=== PATIENT | male | born 1960 | race Caucasian/White ===

== ENCOUNTER 2017-09-06 19:59 | Inpatient (IN) ==
--- OUTSIDE RECORDS SUMMARY | 2017-09-06 20:10 | External Medical Summary | Referral Summary ---
:1960 Author Organization [facility], [address] [place] [address] Care Team Providers Name Role Phone Martinez Thompson Primary Care Physician Encounter VC Date(s): 07/27/15 - 07/27/15 [facility] [address] [place] [phone] [place] Discharge Diagnosis: HTN (hypertension) Discharge Diagnosis: CAD (coronary artery disease) Discharge Disposition: 01-Home or Self Care Attending Physician: Martinez Thompson DO Admitting Physician: Martinez Thompson DO Vital Signs Most recent to oldest [Reference Range]: 1 Temperature Tympanic [36.6-38.1 degC] 36.2 degC *LOW* (07/27/15 3:40 PM) Peripheral Pulse Rate [60-100 bpm] 80 bpm (07/27/15 3:40 PM) Blood Pressure [90-140/60-90 mmHg] 147/95 mmHg *HI* (07/27/15 3:40 PM) Problem List Condition Effective Dates Status Health Status Informant Angina(Confirmed) Active Bronchitis(Confirmed) Active Chicken pox(Confirmed) Active Sinus infection(Confirmed) Active Tension headache(Confirmed) Active Ulcer(Confirmed) Active Ulcerative colitis(Confirmed) Active Allergies, Adverse Reactions, Alerts Substance Reaction Severity Status ciprofloxacin joint pains and general malais Active doxycycline Active erythromycin Active penicillin Active Medications aspirin 325 mg oral tablet 325 mg 1 tabs, Oral, Daily, # 30 tabs, 0 Refill(s) Start Date: 07/27/15 Status: Orderedatorvastatin 40 mg oral tablet 40 mg 1 tabs, Oral, Daily, # 30 tabs, 0 Refill(s) Start Date: 07/27/15 Status: OrderedCoreg 12.5 mg oral tablet 12.5 mg 1 tabs, Oral, BID, # 60 tabs, 0 Refill(s), Pharmacy: [facility] [id number], 1 tabs OralBID Start Date: 07/27/15 Status: OrderedDulera 100 mcg-5 mcg/inh inhalation aerosol See Instructions, INHALE 1 PUFF BY INHALATION ROUTE EVERY DAY IN THE MORNING AND EVENING, # 30 unknown unit, 3 Refill(s), eRx: [facility] [id number], INHALE 1 PUFF BY INHALATION ROUTE EVERY DAY INTHE MORNING AND EVENING Start Date: 01/15/15 Status: Orderedibuprofen 200 mg oral tablet tabs, Oral, q4hr, 0 Refill(s) Start Date: 12/25/13 Status: Orderedprasugrel 5 mg oral tablet 5 mg 1 tabs, Oral, Daily, # 30 tabs, 0 Refill(s) Start Date: 07/27/15 Status: OrderedTylenol Caplet 325 mg oral tablet tabs, Oral, q4hr, 0 Refill(s) Start Date: 12/25/13 Status: Ordered Results No data available for this section Immunizations No data available for this section Procedures Procedure Date Related Diagnosis Body Site Colonoscopy1 Tonsillectomy Vasectomy or 2008 Social History Social History Type Response Smoking Status Never smoker Assessment and Plan Extracted from: Title: Office Visit Note Author: Martinez Thompson DO Date: 07/27/15 Assessment/Plan CAD (coronary artery disease) Pathophysiology of this presentation, and differential diagnosis, discussed in detail with the patient. All questions were answered. 1. Healthy lifestyle modifications including diet and daily exercise recommended. 2. Labs ordered and are pending. Ordered: CBC w/ Differential Comprehensive Metabolic Panel Lipid Panel Office Visit Level 4 Est 63614 HTN (hypertension) Pathophysiology of this presentation, and differential diagnosis, discussed in detail with the patient. All questions were answered. 1. Low salt diet recommended. 2. Healthy lifestyle changes recommended. 3. Follow-up in one month for reevaluation. 4. Was started on Coreg 12.5 mg twice a day. Ordered: Office Visit Level 4 Est 17661 Orders: carvedilol, 12.5 mg 1 tabs, Oral, BID, # 60 tabs, 0 Refill(s), Pharmacy: [facility] [id number], 1 tabs Oral BID
--- OUTSIDE RECORDS SUMMARY | 2017-09-06 20:10 | External Medical Summary | Referral Summary ---
:1960 Author Organization [facility], [address] [place] [address] Care Team Providers Name Role Phone Martinez Thompson Primary Care Physician Encounter VC Date(s): 12/10/15 - 12/10/15 [facility] [address] [place] [phone] [place] Discharge Diagnosis: HTN (hypertension) Discharge Diagnosis: CAD (coronary artery disease) Discharge Diagnosis: Radial mononeuropathy Discharge Disposition: 01-Home or Self Care Attending Physician: Martinez Thompson DO Admitting Physician: Martinez Thompson DO Vital Signs Most recent to oldest [Reference Range]: 1 Temperature Tympanic [36.6-38.1 degC] 36.3 degC *LOW* (12/10/15 8:27 AM) Apical Heart Rate [60-100 bpm] 61 bpm (12/10/15 8:27 AM) Blood Pressure [90-140/60-90 mmHg] 128/82 mmHg (12/10/15 8:27 AM) SpO2 97 % (12/10/15 8:27 AM) Problem List Condition Effective Dates Status Health Status Informant Angina(Confirmed) Active Bronchitis(Confirmed) Active Chicken pox(Confirmed) Active CAD (coronary artery Active disease)(Confirmed) HTN (hypertension)(Confirmed) Active Sinus infection(Confirmed) Active Tension headache(Confirmed) Active [...] tabs, 0 Refill(s) Start Date: 07/27/15 Status: Orderedcarvedilol 12.5 mg oral tablet See Instructions, TAKE 1 TABLET BY MOUTH TWICE DAILY, # 60 tabs, 5 Refill(s), eRx: [facility] [id number], TAKE 1 TABLET BY MOUTH TWICE DAILY Start Date: 11/25/15 Status: OrderedDulera 100 mcg-5 mcg/inh inhalation aerosol See Instructions, INHALE 1 PUFF BY INHALATION ROUTE EVERY DAY IN THE MORNING AND EVENING, # 30 unknown unit, 3 Refill(s), eRx: [facility] [id number], INHALE 1 PUFF BY INHALATION ROUTE EVERY [...] q4hr, 0 Refill(s) Start Date: 12/25/13 Status: OrderedVentolin HFA 90 mcg/inh inhalation aerosol 2 puffs, Inhalation, q4hr, as needed for wheezing, # 1 inch, 6 Refill(s), Pharmacy: [facility] [id number], 2 puffs Inhalation q4hr,PRN:as needed for wheezing Start Date: 12/10/15 Status: Ordered Results No data available for this section Immunizations No data available for this section Procedures Procedure Date Related Diagnosis Body Site Colonoscopy1 Tonsillectomy Vasectomy or 2008 Social History Social History Type Response Smoking Status Never smoker Assessment and Plan Extracted from: Title: Office Visit Note Author: Martinez Thompson DO Date: 12/10/15 Assessment/Plan 1.HTN (hypertension), Essential (primary) hypertension 1. Blood pressures well controlled. 2. Continue with current blood pressure regimenwith carvedilol. 3. Continue with low-salt diet. 4. Continue maintaining healthy diet and weight. 5. We will see him in 6 months. Ordered: Office Visit Level 4 Est 36770 2.CAD (coronary artery disease), Atherosclerotic heart disease of [place] coronary artery without angina pectoris 1. Continue with atorvastatin as previous. 2. Continue with cardiology recommendations as per Dr. Jones 3. Heart healthy diet recommended. Ordered: Office Visit Level 4 Est 35549 3.Radial mononeuropathy, Injury of radial nerve at wrist and hand level of right arm, initial encounter 1. We discussed the numbness in the right hand between the second and third digit, this appears to be mononeuropathy to one of the distal branches of the radial nerve. 2. If this is persistent, worsens or involves a wider distribution, then we may consider EMG study and referral to hand surgeon. Ordered: Office Visit Level 4 Est 16925 Mild intermittent asthma 1. Continue with Dulera one puff daily. Increase to one puff twice a day if his symptoms worsens. 2. Rescue inhaler 2 puffs every 4 hours for exacerbations. Ordered: Office Visit Level 4 Est 84526 Orders: albuterol, 2 puffs, Inhalation, q4hr, as needed for wheezing, # 1 inch, 6 Refill(s), Pharmacy: [facility] [id number], 2 puffs Inhalation q4hr ,PRN:as needed for wheezing
--- OUTSIDE RECORDS SUMMARY | 2017-09-06 20:10 | External Medical Summary | Referral Summary ---
:1960 Author Organization [facility], [address] [place] [address] Care Team Providers Name Role Phone Martinez Thompson Primary Care Physician Encounter VC Date(s): 06/13/16 - 06/13/16 [facility] [address] [place] [phone]- Discharge Diagnosis: Moderate persistent chronic asthma without complication Discharge Diagnosis: HTN (hypertension) Discharge Disposition: 01-Home or Self Care Attending Physician: Martinez Thompson DO Admitting Physician: Martinez Thompson DO Vital Signs Most recent to oldest [Reference Range]: 1 Temperature Tympanic [36.6-38.1 degC] 35.8 degC *LOW* (06/13/16 8:38 AM) Peripheral Pulse Rate [60-100 bpm] 85 bpm (06/13/16 8:38 AM) Blood Pressure [90-140/60-90 mmHg] 157/102 mmHg *HI* (06/13/16 8:38 AM) Problem List Condition Effective Dates Status [...] BY MOUTH TWICE DAILY, # 60 tabs, 2 Refill(s), eRx: [facility] [id number], TAKE 1 TABLET BY MOUTH TWICE DAILY Start Date: 05/18/16 Status: OrderedDulera 100 mcg-5 mcg/inh inhalation aerosol 2 puffs, Inhalation, BID, # 13 g, 6 Refill(s), Pharmacy: [facility] [id number] Start Date: 06/13/16 Status: Orderedibuprofen 200 mg oral tablet tabs, Oral, q4hr, 0 Refill(s) Start Date: 12/25/13 Status: Orderednitroglycerin 0 Refill(s) Start Date: 06/13/16 Status: Orderedprasugrel 10 mg oral tablet 10 mg 1 tabs, Oral, Daily, # 30 tabs, 0 Refill(s), other reason (Rx) Start Date: 06/13/16 Status: OrderedpredniSONE 20 mg oral tablet 20 mg 1 tabs, Oral, Daily, X 5 days, # 5 tabs, 0 Refill(s), Pharmacy: [facility] [id number], 1 tabs Oral Daily,x5 days Start Date: 06/13/16 Stop Date: 06/18/16 Status: OrderedTylenol Caplet 325 mg oral tablet tabs, Oral, q4hr, 0 Refill(s) Start Date: 12/25/13 Status: OrderedVentolin HFA 90 mcg/inh inhalation aerosol 2 puffs, Inhalation, q4hr, as needed for wheezing, # 1 inch, 6 Refill(s), Pharmacy: [facility] [id number], 2 puffs Inhalation q4hr,PRN:as needed for wheezing Start Date: 12/10/15 Status: Ordered Results No data available for this section Immunizations No data available for this section Procedures Procedure Date Related Diagnosis Body Site Colonoscopy1 Tonsillectomy Vasectomy or 2008 Social History Social History Type Response Smoking Status Never smoker Assessment and Plan Extracted from: Title: Office Visit Note Author: Martinez Thompson DO Date: 06/13/16 Assessment/Plan 1.HTN (hypertension) 1. Blood pressure was rechecked and it was 142/94. 2. Low salt diet recommended. 3. Continue meds as previous. 4. Avoid NSAID's 5. Followup in a month for reevaluation. Moderate persistent chronic asthma without complication 1. Agree with increasing Dulera to bid 2. Burst course steroid for 5 days. 3. Continue with rescue inhaler as previous. 4. followup if worsening. 5. Z-belinda was made available if he has having discolored productive cough. Ordered: predniSONE, 20 mg 1 tabs, Oral, Daily, X 5 days, # 5 tabs, 0 Refill(s), [id number], 1 tabs Oral Daily,x5 days Office Visit Level 4 Est 83315 1. Patient is up to date on flu shot for this season. 2. Rib cage pain appears to be muscular in nature.
--- OUTSIDE RECORDS SUMMARY | 2017-09-06 20:10 | External Medical Summary | Referral Summary ---
:1960 Author Organization [facility] [address] [place] [address] [place] [address] Care Team Providers Name Role Phone Martinez Thompson Primary Care Physician Encounter VC Date(s): 12/24/15 - 12/24/15 [facility] [address] [place] [phone] [place] Discharge Disposition: 01-Home or Self Care Attending Physician: Martinez Thompson DO Admitting Physician: Martinez Thompson DO Vital Signs Most recent to oldest [Reference Range]: 1 Temperature Tympanic [36.6-38.1 degC] 37.0 degC (12/24/15 10:09 AM) Apical Heart Rate [60-100 bpm] 74 bpm (12/24/15 10:09 AM) Blood Pressure [90-140/60-90 mmHg] 118/82 mmHg (12/24/15 10:09 AM) SpO2 96 % (12/24/15 10:09 AM) Problem List Condition Effective Dates Status [...] DAILY, # 60 tabs, 5 Refill(s), eRx: [facility] [id number], TAKE 1 TABLET BY MOUTH TWICE DAILY Start Date: 11/25/15 Status: OrderedDulera 100 mcg-5 mcg/inh inhalation aerosol See Instructions, INHALE 1 PUFF BY INHALATION ROUTE EVERY DAY IN THE MORNING AND EVENING, # 30 unknown unit, 3 Refill(s), eRx: [facility] , INHALE 1 PUFF BY INHALATION ROUTE EVERY DAY INTHE MORNING AND EVENING Start Date: 01/15/15 Status: Orderedibuprofen 200 mg oral tablet tabs, Oral, q4hr, 0 Refill(s) Start Date: 12/25/13 Status: Orderedprasugrel 5 mg oral tablet 5 mg 1 tabs, Oral, Daily, # 30 tabs, 0 Refill(s) Start Date: 07/27/15 Status: OrderedpredniSONE 20 mg oral tablet 20 mg 1 tabs, Oral, Daily, X 5 days, # 5 tabs, 0 Refill(s), Pharmacy: [facility] [id number], 1 tabs Oral Daily,x5 days Start Date: 12/24/15 Stop Date: 12/29/15 Status: OrderedTylenol Caplet 325 mg oral tablet tabs, Oral, q4hr, 0 Refill(s) Start Date: 12/25/13 Status: OrderedVentolin HFA 90 mcg/inh inhalation aerosol 2 puffs, Inhalation, q4hr, as needed for wheezing, # 1 inch, 6 Refill(s), Pharmacy: [facility] [id number], 2 puffs Inhalation q4hr,PRN:as needed for wheezing Start Date: 12/10/15 Status: OrderedZithromax Z-Justino 250 mg oral tablet 1 packets, Oral, Daily, as directed on package labeling, X 5 days, # 6 tabs, 0 Refill(s), Pharmacy: [facility] [id number], 1 packets Oral Daily,x5 days, Instr:as directed on package labeling Start Date: 12/24/15 Stop Date: 12/29/15 Status: Ordered Results No data available for this section Immunizations No data available for this section Procedures Procedure Date Related Diagnosis Body Site Colonoscopy1 Tonsillectomy Vasectomy or 2008 Social History Social History Type Response Smoking Status Never smoker Assessment and Plan Extracted from: Title: Office Visit Note Author: Martinez Thompson DO Date: 12/24/15 Assessment/Plan Acute bacterial bronchitis 1. Z-Justino take as directed for 5 days 2. Prednisone 20 mg daily for 5 days 3. Follow-up for worsening presentation Ordered: azithromycin, 1 packets, Oral, Daily, as directed on package labeling, X 5 days, # 6 tabs, 0 Refill(s), Pharmacy: [facility] [id number], 1 packets Oral Daily,x5 days,Instr:as directed on package labeling predniSONE, 20 mg 1 tabs, Oral, Daily, X 5 days, # 5 tabs, 0 Refill(s), Pharmacy: [facility] [id number], 1 tabs Oral Daily,x5 days
--- OUTSIDE RECORDS SUMMARY | 2017-09-06 20:10 | External Medical Summary | Continuity of Care Document ---
:1960 Author Organization [facility] Allergies Active Description Code Type Severity Reaction Onset Reported/ Identified Relationship Clinical to Patient Status Yes ciprofloxaci NKMA N/A joint 11/20/2013 n pains and general malais Yes doxycycline NKMA N/A N/A 11/20/2013 Yes erythromycin NKMA N/A N/A 11/20/2013 Yes penicillin NKMA N/A N/A 11/20/2013 Yes ciprofloxaci cipro Drug Unknown FLU LIKE 07/10/2015 n floxa Aller SYMPTOMS natalia gy Yes erythromycin eryth Drug Unknown FLU LIKE 07/10/2015 base romyc Aller SYMPTOMS in gy base Yes iodine iodin Drug Unknown FLU LIKE 07/10/2015 e Aller SYMPTOMS gy Yes No Known No Drug Unknown N/A 07/10/2015 Allergies Known Aller Aller gy gies Yes Penicillins Penic Drug Unknown FLU LIKE 07/10/2015 illin Aller SYMPTOMS s gy Medications There is no data. Problems Date Dx Attending Type Code Diagnosis Diagnosed By Coded 12/10/2015 Martinez Thompson Final I10 Essential (primary) hypertension 12/10/2015 Martinez Thompson Final I25.10 Atherosclerotic heart disease of [place] coronary artery without angina pectoris 12/10/2015 Martinez Thompson Final G56.30 Lesion of radial nerve, unspecified upper limb 12/10/2015 Martinez Thompson Final S64.21XA Injury of radial nerve at wrist and hand level of right arm, initial encounter 03/08/2016 Martinez Thompson Final J30.2 Other seasonal allergic rhinitis 03/08/2016 Martinez Thompson Final R23.8 Other skin changes 04/21/2016 Martinez Thompson Final J30.2 Other seasonal allergic rhinitis 04/21/2016 Martinez Thompson Final J45.40 Moderate persistent asthma, uncomplicated 06/13/2016 Martinez Thompson Final J45.40 Moderate persistent asthma, uncomplicated 06/13/2016 Martinez Thompson Final I10 Essential (primary) hypertension 07/14/2016 Martinez Thompson Final I10 Essential (primary) hypertension 07/14/2016 Martinez Thompson Final M54.2 Cervicalgia 04/05/2017 Crescencio, Final J30.1 Allergic rhinitis due [place] to pollen Procedures Code Description [place] [address] Office or 12/10/2015 other outpatient visit for the evaluation and management of an established patient, which requires at least 2 of these 3 whalen components: An expanded problem focused history; An expanded prob 26064 Office or 12/10/2015 other outpatient visit for the evaluation and management of an established patient, which requires at least 2 of these 3 whalen components: A detailed history; A detailed examination; Medical d 27219 Office or 12/24/2015 other outpatient visit for the evaluation and management of an established patient, which requires at least 2 of these 3 whalen components: An expanded problem focused history; An expanded prob 23040 Office or 03/08/2016 other outpatient visit for the evaluation and management of an established patient, which requires at least 2 of these 3 whalen components: A detailed history; A detailed examination; Medical d 26570 Office or 06/13/2016 other outpatient visit for the evaluation and management of an established patient, which requires at least 2 of these 3 whalen components: A detailed history; A detailed examination; Medical d 06327 Office or 07/14/2016 other outpatient visit for the evaluation and management of an established patient, which requires at least 2 of these 3 whalen components: An expanded problem focused history; An expanded prob 58377 Office or 04/05/2017 other outpatient visit for the evaluation and management of an established patient, which requires at least 2 of these 3 whalen components: An expanded problem focused history; An expanded prob Results Test Result Range TROPONIN I BEDSIDE - 07/10/15 12:22 METHOD Bedside TROPONIN I < 0.04 ng/mL < 0.11 CHEM/HEM PROFILE-BEDSIDE - 07/10/15 12:46 POTASSIUM 4.3 mmol/L 3.5-5.3 METHOD Bedside ANION GAP 19 mmol/L 10-20 METHOD Bedside GLUCOSE 123 mg/dL 70-99 BLOOD UREA NITROGEN 24 mg/dL 7-20 CREATININE 0.8 mg/dL 0.7-1.3 HEMOGLOBIN 16.0 gm/dL 14.0-18.0 HEMATOCRIT 47.0 % 40.0-54.0 SODIUM 141 mmol/L 135-148 CHLORIDE 105 mmol/L 98-110 CARBON DIOXIDE 22 mmol/L 21-32 CALCIUM IONIZED 5.1 mg/dL 4.5-5.3 CBC W/DIFF - 07/10/15 12:51 COMMENT REVIEWED GRANULOCYTE # 12.0 k/cumm 2.0-9.0 GRANULOCYTE % 96 % 50-75 LYMPHOCYTE # 0.4 k/cumm 1.0-4.0 LYMPHOCYTE % 3 % 20-30 MEAN CELL HGB 29.2 pg 27.0-33.0 MEAN CELL HGB CONCENTRATION 33.3 g/dL 32.0-37.0 MEAN CELL VOLUME 87.7 fl 80.0-100.0 MONOCYTE # 0.2 k/cumm 0.1-1.0 MONOCYTE % 1 % 4-6 RED BLOOD CELL 5.28 m/cumm 4.00-6.00 RED CELL DISTRIBUTION WIDTH 13.7 % 11.0-15.6 WHITE BLOOD CELL 12.5 k/cumm 5.0-10.0 HEMOGLOBIN 15.4 gm/dL 14.0-18.0 HEMATOCRIT 46.3 % 40.0-54.0 PLATELET COUNT 253 k/cumm 150-400 PROTHROMBIN TIME WITH INR - 07/10/15 14:18 INTERNATIONAL NORMAL RATIO 1.1 0.9-1.1 PROTHROMBIN TIME 11.8 sec 9.3-12.2 MAGNESIUM - 07/10/15 14:18 MAGNESIUM 1.8 mg/dL 1.8-2.4 CBC - 07/11/15 03:15 MEAN CELL HGB 30.3 pg 27.0-33.0 MEAN CELL HGB CONCENTRATION 34.3 g/dL 32.0-37.0 MEAN CELL VOLUME 88.4 fl 80.0-100.0 RED BLOOD CELL 4.55 m/cumm 4.00-6.00 RED CELL DISTRIBUTION WIDTH 13.8 % 11.0-15.6 WHITE BLOOD CELL 13.0 k/cumm 5.0-10.0 HEMOGLOBIN 13.8 gm/dL 14.0-18.0 HEMATOCRIT 40.2 % 40.0-54.0 PLATELET COUNT 210 k/cumm 150-400 METABOLIC PANEL, BASIC - 07/11/15 03:15 POTASSIUM 3.8 mmol/L 3.5-5.3 EST GFR (MDRD) > 60 mL/min > 59 ANION GAP 6 mmol/L 5-15 EST CrCl (CG) > 60 mL/min > 59 GLUCOSE 121 mg/dL 70-99 CALCIUM 8.3 mg/dL 8.5-10.1 BLOOD UREA NITROGEN 27 mg/dL 7-20 CREATININE 1.0 mg/dL 0.7-1.3 SODIUM 140 mmol/L 135-148 CHLORIDE 109 mmol/L 98-110 CARBON DIOXIDE 25 mmol/L 21-32 Encounters ACCT No. Visit Discharge Status Pt. Type Provider Facility Loc./Unit Complaint Date/Time [id number] 09/30/2013 09/30/2013 [facility] Out[facility] 08:16:00 23:59:59 t [id number] 09/13/2013 09/13/2013 CLS Outpatien 08:11:00 23:59:59 t [id number] 07/10/2015 07/11/2015 [facility] 13:15:00 10:45:00 t , [facility] [id number] 07/10/2015 07/10/2015 DIS Emergency [facility] PayneED[facility] 49 11:40:00 13:06:00 [facility] [id number] 04/05/2017 04/05/2017 DIS Outpatien Crescencio, Via [facility] New DOC head 52 16:24:00 23:59:00 [facility] [id number] 07/14/2016 07/14/2016 DIS Outpatien Teck, [facility] New 1 month HTN 33 07:42:00 23:59:00 [facility] [id number] 06/13/2016 06/13/2016 DIS Outpatien Teck, Via [facility] New 6MTH RCK 79 08:25:00 23:59:00 vick Parson CD HTN FU Clinic FROM 5.19 [id number] 04/21/2016 04/21/2016 DIS Outpatien Teck, Via [facility] New discuss 30 14:28:00 23:59:00 vick Parson refill on Clinic med [id number] 03/08/2016 03/08/2016 DIS Outpatien Teck, [facility] New TCPA chest 20 09:03:00 23:59:00 vick [facility] congestion [facility] sinus issues [id number] 12/24/2015 12/24/2015 DIS Outpatien Teck, Via [facility] New FM sinus 61 10:02:00 23:59:00 vick Parson issues Clinic [id number] 12/10/2015 12/10/2015 DIS Outpatien Teck, Via [facility] New 3 month med 25 08:14:00 23:59:00 vick Parson check Clinic [id number] 08/27/2015 08/27/2015 DIS Outpatien Teck, Via [facility] New FM 1MTH HTN 68 15:21:00 23:59:00 vick Parson CAD FROM Clinic 1.4.16 [id number] 07/27/2015 07/27/2015 DIS Outpatien Teck, Via [facility] New new pt. to 57 15:23:00 23:59:00 vick Parson establish Clinic
--- OUTSIDE RECORDS SUMMARY | 2017-09-06 20:10 | External Medical Summary | Referral Summary ---
:1960 Author Organization [facility] [address] [place] [address] Care Team Providers Name Role Phone Martinez Thompson Primary Care Physician Encounter VC Date(s): 04/21/16 - 04/21/16 [facility] [address] [place] [id number]- Discharge Diagnosis: Asthma, moderate persistent Discharge Diagnosis: Seasonal allergic reaction Discharge Disposition: 01-Home or Self Care Attending Physician: Martinez Thompson DO Vital Signs Most recent to oldest [Reference Range]: 1 Temperature Tympanic [36.6-38.1 degC] 37.3 degC (04/21/16 2:46 PM) Peripheral Pulse Rate [60-100 bpm] 78 bpm (04/21/16 2:46 PM) Respiratory Rate [14-20 br/min] 18 br/min (04/21/16 2:46 PM) Blood Pressure [90-140/60-90 mmHg] 124/78 mmHg (04/21/16 2:46 PM) SpO2 97 % (04/21/16 2:46 PM) Problem List Condition Effective Dates Status [...] DAILY, # 60 tabs, 5 Refill(s), eRx: [facility] [id number], TAKE 1 TABLET BY MOUTH TWICE DAILY Start Date: 11/25/15 Status: OrderedDulera 100 mcg-5 mcg/inh inhalation aerosol See Instructions, INHALE 1 PUFF BY INHALATION ROUTE EVERY DAY IN THE MORNING AND EVENING, # 30 unknown unit, 3 Refill(s), eRx: [facility] [id number], INHALE 1 PUFF BY INHALATION ROUTE EVERY DAY INTHE MORNING AND EVENING Start Date: 01/15/15 Status: Orderedibuprofen 200 mg oral tablet tabs, Oral, q4hr, 0 Refill(s) Start Date: 12/25/13 Status: Orderedprasugrel 5 mg oral tablet 5 mg 1 tabs, Oral, Daily, # 30 tabs, 0 Refill(s) Start Date: 07/27/15 Status: OrderedpredniSONE 20 mg oral tablet 20 mg 1 tabs, Oral, Daily, X 7 days, # 7 tabs, 1 Refill(s), Pharmacy: [facility] [id number], 1 tabs Oral Daily,x7 days Start Date: 04/21/16 Stop Date: 05/05/16 Status: OrderedTylenol Caplet 325 mg oral tablet tabs, Oral, q4hr, 0 Refill(s) Start Date: 12/25/13 Status: OrderedVentolin HFA 90 mcg/inh inhalation aerosol 2 puffs, Inhalation, q4hr, as needed for wheezing, # 1 inch, 6 Refill(s), Pharmacy: [facility] [id number], 2 puffs Inhalation q4hr,PRN:as needed for wheezing Start Date: 12/10/15 Status: OrderedZithromax Z-Justino 250 mg oral tablet 1 packets, Oral, Daily, as directed on package labeling, X 5 days, # 6 tabs, 0 Refill(s), Pharmacy: [facility] [id number], 1 packets Oral Daily,x5 days, Instr:as directed on package labeling Start Date: 04/21/16 Stop Date: 04/26/16 Status: Ordered Results No data available for this section Immunizations No data available for this section Procedures Procedure Date Related Diagnosis Body Site Colonoscopy1 Tonsillectomy Vasectomy or 2008 Social History Social History Type Response Smoking Status Never smoker Assessment and Plan Extracted from: Title: Office Visit Note Author: Martinez Thompson DO Date: 04/21/16 Assessment/Plan 1.Asthma, moderate persistent 1. Continue with Dulera twice a day 2. Continue with rescue inhaler every 4 hours as needed 3. Follow-up for exacerbations Ordered: Office Visit Level 4 Est 47778 Seasonal allergic reaction 1. Prednisone 20 mg daily for 5 days 2. Zithromax was sent out for [id number] approach. Patient for starting the antibiotic was discussed in detail with the patient, he voiced understanding. Ordered: predniSONE, 20 mg 1 tabs, Oral, Daily, X 7 days, # 7 tabs, 1 Refill(s), Pharmacy: [facility] [id number], 1 tabs Oral Daily,x7 days Office Visit Level 4 Est 83025
--- OUTSIDE RECORDS SUMMARY | 2017-09-06 20:10 | External Medical Summary | Referral Summary ---
:1960 Author Organization [facility], [address] [place] [address] Care Team Providers Name Role Phone Martinez Thompson Primary Care Physician Encounter VC Date(s): 03/08/16 - 03/08/16 [facility] [address] [place] [address] [place] Discharge Diagnosis: Easy bruising Discharge Diagnosis: Seasonal allergies Discharge Disposition: 01-Home or Self Care Attending Physician: Martinez Thompson DO Admitting Physician: Martinez Thompson DO Vital Signs Most recent to oldest [Reference Range]: 1 Temperature Tympanic [36.6-38.1 degC] 36.9 degC (03/08/16 9:07 AM) Peripheral Pulse Rate [60-100 bpm] 67 bpm (03/08/16 9:07 AM) Respiratory Rate [14-20 br/min] 18 br/min (03/08/16 9:07 AM) Blood Pressure [90-140/60-90 mmHg] 122/80 mmHg (03/08/16 9:07 AM) SpO2 98 % (03/08/16 9:07 AM) Problem List Condition Effective Dates Status [...] DAILY, # 60 tabs, 5 Refill(s), eRx: [facility] [id number], TAKE 1 TABLET BY MOUTH TWICE DAILY Start Date: 11/25/15 Status: OrderedDulera 100 mcg-5 mcg/inh inhalation aerosol See Instructions, INHALE 1 PUFF BY INHALATION ROUTE EVERY DAY IN THE MORNING AND EVENING, # 30 unknown unit, 3 Refill(s), eRx: [facility] 98253, INHALE 1 PUFF BY INHALATION ROUTE EVERY [...] Daily, X 7 days, # 7 tabs, 0 Refill(s), Pharmacy: [facility] 95648, 1 tabs Oral Daily,x7 days Start Date: 03/08/16 Stop Date: 03/15/16 Status: OrderedTylenol Caplet 325 mg oral tablet tabs, Oral, q4hr, 0 Refill(s) Start Date: 12/25/13 Status: OrderedVentolin HFA 90 mcg/inh inhalation aerosol 2 puffs, Inhalation, q4hr, as needed for wheezing, # 1 inch, 6 Refill(s), Pharmacy: [facility] 26434, 2 puffs Inhalation q4hr,PRN:as needed for wheezing Start Date: 12/10/15 Status: Ordered Results No data available for this section Immunizations No data available for this section Procedures Procedure Date Related Diagnosis Body Site Colonoscopy1 Tonsillectomy Vasectomy or 2008 Social History Social History Type Response Smoking Status Never smoker Assessment and Plan Extracted from: Title: Office Visit Note Author: Martinez Thompson DO Date: 03/08/16 Assessment/Plan 1.Easy bruising, Other skin changes 1. Easy bruising is likely secondary to the anticoagulation therapy in addition to aspirin. 2. Recommended discussing this with duct layer to see when he can discontinue the anticoagulation therapy. 3. Follow-up for uncontrolled bleeding. Ordered: Office Visit Level 4 Est 21987 2.Seasonal allergies, Other seasonal allergic rhinitis 1. Continue with [id number] antihistamine. 2. Continue with nasal steroid spray and nasal rinses. Ordered: Office Visit Level 4 Est 88799 Asthma, allergic 1. Continue with Dulera one puff twice a day. 2. Recommended starting rescue inhaler 2 puffs every 4 hours as needed. 3. Prednisone 20 mg daily for 4 days. 4. Z-Justino was made available for [id number] approach. At this time I do not think he would benefit from antibiotic therapy. 5. Asthma education done today. Ordered: Office Visit Level 4 Est 59114 Orders: predniSONE, 20 mg 1 tabs, Oral, Daily, X 7 days, # 7 tabs, 0 Refill(s ), Pharmacy: [facility] 30[address], 1 tabs Oral Daily,x7 days
--- OUTSIDE RECORDS SUMMARY | 2017-09-06 20:10 | External Medical Summary | Referral Summary ---
:1960 Author Organization [facility], [address] [place] [address] Care Team Providers Name Role Phone Martinez Thompson Primary Care Physician Encounter VC Date(s): 08/27/15 - 08/27/15 [facility] [address] [place] [address] Discharge Diagnosis: Hypertension Discharge Diagnosis: Somatic dysfunction of rib region Discharge Diagnosis: CAD (coronary artery disease) Discharge Diagnosis: Thoracic region somatic dysfunction Discharge Disposition: 01-Home or Self Care Attending Physician: Martinez Thompson DO Admitting Physician: Martinez Thompson DO Vital Signs Most recent to oldest [Reference Range]: 1 Temperature Tympanic [36.6-38.1 degC] 36.5 degC *LOW* (08/27/15 3:38 PM) Peripheral Pulse Rate [60-100 bpm] 80 bpm (08/27/15 3:38 PM) Blood Pressure [90-140/60-90 mmHg] 128/82 mmHg (08/27/15 3:38 PM) Problem List Condition Effective Dates Status [...] 07/27/15 Status: OrderedCoreg 12.5 mg oral tablet See Instructions, 1 TABS ORAL BID, # 60 tabs, 1 Refill(s), eRx: [facility] 27292, 1 TABS ORAL BID Start Date: 08/26/15 Status: OrderedCoreg 12.5 mg oral tablet 12.5 mg 1 tabs, Oral, BID, # 60 tabs, 0 Refill(s), Pharmacy: [facility] 48545, 1 tabs OralBID Start Date: 07/27/15 Status: OrderedDulera 100 mcg-5 mcg/inh inhalation aerosol See Instructions, INHALE 1 PUFF BY INHALATION ROUTE EVERY DAY IN THE MORNING AND EVENING, # 30 unknown unit, 3 Refill(s), eRx: [facility] 78443, INHALE 1 PUFF BY INHALATION ROUTE EVERY [...] Visit Note Author: Martinez Thompson DO Date: 08/27/15 Assessment/Plan CAD (coronary artery disease) 1. Continue with recommendation as per cardiology. 2. Continue with healthy diet modification. 3. Start increasing activity as tolerated. 4. Follow-up with cardiology at scheduled appointment. Ordered: Office Visit Level 4 Est 14773 Osteopathic Manipulative Treatment (Omt); One To Two Body Regions Involved 71791 HTN (hypertension), Hypertension 1. Blood pressure well controlled. 2. Continue with low-salt diet. Ordered: Office Visit Level 4 Est 63303 Osteopathic Manipulative Treatment (Omt); One To Two Body Regions Involved 46209 Somatic dysfunction of rib region Osteopathic manipulation was done of the thoracic spine and rib cage bilaterally. Treatment consisted with soft tissue treatment, muscle energy and HVLA modalities. Patient tolerated treatment well and had improvement in his discomfort prior to dismissal. Thoracic region somatic dysfunction As above. Ordered: Office Visit Level 4 Est 24050 Osteopathic Manipulative Treatment (Omt); One To Two Body Regions Involved [address]
--- OUTSIDE RECORDS SUMMARY | 2017-09-06 20:10 | External Medical Summary | Referral Summary ---
:1960 Author Organization [facility], [address] [place] [address] Care Team Providers Name Role Phone Martinez Thompson Primary Care Physician Encounter VC Date(s): 07/14/16 - 07/14/16 [facility] [address] [place] [address] [place] Discharge Diagnosis: HTN (hypertension) Discharge Diagnosis: Chronic neck pain Discharge Disposition: 01-Home or Self Care Attending Physician: Martinez Thompson DO Admitting Physician: Martinez Thompson DO Vital Signs Most recent to oldest [Reference Range]: 1 Temperature Tympanic [36.6-38.1 degC] 36.1 degC *LOW* (07/14/16 8:19 AM) Peripheral Pulse Rate [60-100 bpm] 56 bpm *LOW* (07/14/16 8:19 AM) Blood Pressure [90-140/60-90 mmHg] 120/80 mmHg (07/14/16 8:19 AM) SpO2 97 % (07/14/16 8:19 AM) Problem List Condition Effective Dates Status [...] DAILY, # 60 tabs, 2 Refill(s), eRx: [facility] 75786, TAKE 1 TABLET BY MOUTH TWICE DAILY Start Date: 05/18/16 Status: OrderedDulera 100 mcg-5 mcg/inh inhalation aerosol 2 puffs, Inhalation, BID, # 13 g, 6 Refill(s), Pharmacy: [facility] [id number] Start Date: 06/13/16 Status: Orderedibuprofen 200 mg oral tablet tabs, Oral, q4hr, 0 Refill(s) Start Date: 12/25/13 Status: Orderednitroglycerin 0 Refill(s) Start Date: 06/13/16 Status: Orderedprasugrel 10 mg oral tablet 10 mg 1 tabs, Oral, Daily, # 30 tabs, 0 Refill(s), other reason (Rx) Start Date: 06/13/16 Status: OrderedVentolin HFA 90 mcg/inh inhalation aerosol 2 puffs, Inhalation, q4hr, as needed for wheezing, # 1 inch, 6 Refill(s), Pharmacy: [facility] 54427, 2 puffs Inhalation q4hr,PRN:as needed for wheezing Start Date: 12/10/15 Status: Ordered Results No data available for this section Immunizations No data available for this section Procedures Procedure Date Related Diagnosis Body Site Colonoscopy1 Tonsillectomy Vasectomy or 2008 Social History Social History Type Response Smoking Status Never smoker Assessment and Plan Extracted from: Title: Office Visit Note Author: Martinez Thompson DO Date: 07/14/16 Assessment/Plan 1.HTN (hypertension) 1. Blood pressure is controlled at this time. 2. Continue with low salt diet. 3. Continue with current medications. Ordered: Office Visit Level 3 Est 70549 2.Chronic neck pain 1. This mainly muscular in nature. 2. stretching exercises 3. Follow up if worsening presentation. Ordered: Office Visit Level 3 Est 25748
[2017-09-06] MEDS ORDERED: NITROGLYCERIN 0.4 MG SUBLINGUAL TABLET SL PRN (21:20)
[2017-09-06] MEDS ORDERED: ENOXAPARIN 100 MG/ML INJECTION SQ ONE (21:20)
[2017-09-06] MEDS ORDERED: ACETAMINOPHEN 325 MG TABLET PO PRN (21:21)
[2017-09-06] MEDS ORDERED: MORPHINE SULFATE 2mg INJECTION IVP PRN (21:22)
[2017-09-06] MEDS ORDERED: ONDANSETRON 4 MG/2 ML INJECTION IVP PRN (21:23)
[2017-09-06 21:30] VITALS: BMI 27.4
[2017-09-06] MEDS: ATORVASTATIN 20 MG PO SCH (22:00)
[2017-09-06] MEDS: CARVEDILOL 12.5 MG TABLET PO SCH (22:00)
[2017-09-07] MEDS ORDERED: ALBUTEROL 2.5mg/3ml (0.083%) NEB AEROSOL PRN (06:45)
[2017-09-07] MEDS ORDERED: ALBUTEROL ORAL INH PRN (07:25)
[2017-09-07] MEDS: ASPIRIN 81 MG CHEWABLE TABLET PO SCH (09:02)
[2017-09-07] MEDS: CARVEDILOL 12.5 MG TABLET PO SCH ×2 (09:02→17:43)
[2017-09-07] MEDS: NS 1,000 ML IV SCH (12:42)
[2017-09-07] MEDS ORDERED: FentaNYL 100 MCG/2 ML INJECTION ONE (13:24)
[2017-09-07] MEDS ORDERED: LIDOCAINE 1% (10mg/ml) 30ml SDV INJ ONE (13:25)
[2017-09-07] MEDS ORDERED: HEPARIN 1,000 UNITS/500 ML PREMIX (*CVL ONLY*) IV ONE (13:25)
[2017-09-07] MEDS ORDERED: MIDAZOLAM 2mg/2ml INJECTION ONE (13:25)
[2017-09-07] MEDS ORDERED: HEPARIN 1,000unit/ml INJECTION 10ml ONE (13:25)
[2017-09-07] MEDS ORDERED: NITROGLYCERIN 50MG INJECTION IV ONE (13:25)
[2017-09-07] MEDS ORDERED: Verapamil 5 MG/2 ML VIAL ONE (13:25)
[2017-09-07] MEDS ORDERED: MORPHINE SULFATE 4mg INJECTION IVP PRN ×2 (14:22)
[2017-09-07] MEDS ORDERED: Bisacodyl EC TAB 5 MG TABLET PO PRN (14:22)
[2017-09-07] MEDS ORDERED: ACETAMINOPHEN 325 MG TABLET PO PRN (14:22)
[2017-09-07] MEDS ORDERED: ATROPINE 1 MG/ML INJECTION IVP PRN (14:22)
[2017-09-07] MEDS ORDERED: MAG-AL + SIM ORAL LIQUID 30ml PO PRN (14:22)
[2017-09-07] MEDS ORDERED: BISACODYL 10 MG SUPPOSITORY RECTALLY PRN (14:22)
[2017-09-07] MEDS ORDERED: METOCLOPRAMIDE 10mg/2ml INJECTION IVP PRN (14:22)
[2017-09-07] MEDS ORDERED: PROMETHAZINE 25 MG INJECTION IVP PRN (14:22)
[2017-09-07] MEDS ORDERED: ONDANSETRON 4 MG/2 ML INJECTION IVP PRN (14:22)
[2017-09-07] MEDS ORDERED: NITROGLYCERIN 0.4 MG SUBLINGUAL TABLET SL PRN (14:22)
[2017-09-07] MEDS ORDERED: HYDROCODONE/APAP 5mg/325mg TABLET PO PRN (14:22)
[2017-09-07] MEDS ORDERED: LORazepam 0.5 MG TABLET PO PRN (14:22)
[2017-09-07] MEDS ORDERED: MOMETASONE/FORMOTEROL 100/5 mcg INHALER IH PRN (17:24)
[2017-09-07] MEDS ORDERED: CARVEDILOL 12.5 MG TABLET PO SCH (17:30)
[2017-09-07] MEDS: ENOXAPARIN 40 MG/0.4 ML INJECTION SQ SCH (17:40)
[2017-09-07] MEDS ORDERED: ATORVASTATIN 20 MG TABLET PO SCH (21:00)
[2017-09-07] MEDS: ATORVASTATIN 20 MG PO SCH (22:09)
[2017-09-08] MEDS: NS 1,000 ML IV SCH (00:53)
[2017-09-08 07:25] VITALS: BP 160/90; RESP 16; TEMP 98; O2SAT 96
[2017-09-08] MEDS: FORMOTEROL ORAL INH SCH ×2 (07:27→08:49)
[2017-09-08] MEDS: MOMETASONE ORAL INH SCH ×2 (07:27→08:49)
[2017-09-08 07:48] VITALS: PULSE 56
[2017-09-08] MEDS: CARVEDILOL 12.5 MG TABLET PO SCH (08:49)
[2017-09-08] MEDS: ASPIRIN 81 MG CHEWABLE TABLET PO SCH (08:50)
[2017-09-08] MEDS: ENOXAPARIN 40 MG/0.4 ML INJECTION SQ SCH (08:52)
[2017-09-08] MEDS ORDERED: ASPIRIN *EC* 81 MG TABLET PO SCH (09:00)
--- NOTE | 2017-09-08 09:49 | Discharge Summary ---
<Kyra Cabrales - Last Filed: 09/11/17 10:01> Discharge Information Date of admission: 09/07/17 15:39 Anticipated date of discharge: 09/08/17 Attending Physician: Woody Jones MD Primary care physician: Martinez Thompson DO NSTEMI - Procedures Procedures: Date of Exam: 09/07/17 Type of Exam(s): CA heart cath LT DATE OF PROCEDURE September 07, 2017 The patient is a pleasant 57-year-old gentleman with history of coronary artery disease who was admitted with chest pain and elevation in troponin suggestive of non-ST elevation myocardial infarction. He was referred for further evaluation by cardiac catheterization and possible intervention. Informed consent was obtained after explaining the procedure and the potential risks to the patient who agreed to proceed with the procedure. PROCEDURE 1. Left heart catheterization. 2. Coronary angiography. 3. Left ventriculography. TECHNIQUE He was prepped and draped in the usual sterile techniques. Conscious sedation was performed using Versed and fentanyl. 1% lidocaine was used for local anesthesia. Using modified Seldinger technique, arterial access was obtained into the right radial artery with placement of a 6-Grenadian arterial sheath. 3000 units of heparin, 300 mcg of nitroglycerin, and 2.5 mg of verapamil were given through the arterial sheath. LEFT VENTRICULOGRAPHY Left ventriculography in single-plane HIRSCH shallow projection showed normal LV systolic function with ejection fraction of about 65% with no mitral regurgitation or gradient across the aortic valve. LVEDP was about 16. CORONARY ANGIOGRAPHY Left main was free of significant lesions. Left anterior descending artery had minor irregularities. An endovascular stent was present in the mid LAD which was patent. A very small septal branch appeared to be occluded with late flow into the septal branch with 99% ostial stenosis. Left circumflex artery had minor irregularities with no significant lesions. The right coronary artery was dominant and large with no significant lesions. The patient appeared to have some collaterals going from right coronary artery to central territory. The patient tolerated the procedure well with no complications. IMPRESSION 1. Normal LV systolic function with ejection fraction of about 65%. 2. Coronary artery disease as described above. PLAN Given the small nature of the septal branch with multiple collaterals, we decided to continue medical management with no intervention. Will continue risk modification in future. - Laboratory Labs: 09/08/17 04:30 09/08/17 04:30 History of Present Illness HPI: Robert is a pleasant 57-year-old gentleman with history of coronary artery disease who was admitted with chest pain and elevation in troponin suggestive of non-ST elevation myocardial infarction. He was referred for further evaluation by cardiac catheterization and possible intervention. Hospital Course This is a general summary of the patient's hospital course. For more details refer to the complete medical record. Hospital course: Left main was free of significant lesions. Left anterior descending artery had minor irregularities. An endovascular stent was present in the mid LAD which was patent. A very small septal branch appeared to be occluded with late flow into the septal branch with 99% ostial stenosis. Left circumflex artery had minor irregularities with no significant lesions. The right coronary artery was dominant and large with no significant lesions. The patient appeared to have some collaterals going from right coronary artery to central territory. Given the small nature of the septal branch with multiple collaterals, we decided to continue medical management with no intervention. Will continue risk modification in future. Exam Vital signs: Temperature 98 F 09/08/17 07:24 Pulse Rate 56 L 09/08/17 07:48 Respiratory Rate 16 09/08/17 07:24 Blood Pressure 160/90 H 09/08/17 07:24 Pulse Oximetry 96 09/08/17 07:24 - Constitutional no acute distress, well nourished, cooperative - Routine HEENT Exam Head: Present: normocephalic ENT: Present: mucous membranes moist - Routine Neck Exam Absent: JVD, carotid bruit - Routine Chest/Breast/Axilla Exam Chest wall: Absent: tenderness - Routine Respiratory Exam Present: CTA bilaterally. Absent: rales, wheezes - Routine Cardiovascular Exam Present: RRR, no murmur. Absent: JVD - Routine Abdominal Exam Present: soft, normoactive bowel sounds - Routine Extremities Exam Present: no edema - Routine Skin Exam Present: intact, dry, warm - Routine Neurological Exam Present: alert, oriented X3 - Routine Psychiatric Exam Present: normal affect, normal thought process Results 09/08/17 04:30 09/08/17 04:30 CBC 09/08/17 Range/Units 04:30 WBC 6.8 (4.5-11.0) T/MM3 RBC 4.95 (4.50-5.90) M/MM3 Hgb 14.6 (13.5-17.5) GM/DL Hct 44.4 (41-53) % Plt Count 178 (130-400) T/MM3 Neut # (Auto) 4.3 (1.8-7.7) T/MM3 Lymph # (Auto) 1.5 (1-4.8) T/MM3 [place] # (Auto) 0.6 (0-0.8) T/MM3 Eos # (Auto) 0.4 (0-0.5) T/MM3 Baso # (Auto) 0.1 (0-0.2) T/MM3 Comprehensive Metabolic Panel 09/08/17 Range/Units 04:30 Sodium 144 (134-144) MEQ/L Potassium 4.3 (3.6-5) MEQ/L Chloride 107 (98-107) MEQ/L Carbon Dioxide 27 (22-30) MEQ/L BUN 19.0 (9-20) MG/DL Creatinine 0.9 (0.8-1.5) MG/DL Glucose 96 (75-110) MG/DL Calcium 8.8 (8.4-10.2) MG/DL Intake and Output 09/07/17 09/08/17 09/08/17 22:59 06:59 14:59 Intake Total 240 / 240 913.75 / 913.75 180 / 180 Output Total 500 / 500 Balance 240 / 240 913.75 / 913.75 -320 / -320 Intake: IV 913.75 / 913.75 Ns 1,000 ml @ 75 mls/hr IV . 913.75 / 913.75 [id number] [facility] Rx#:[id number] Oral 240 / 240 180 / 180 Output: Urine 500 / 500 Other: Urine Appearance Clear Urine Color Yellow Urine Odor Normal Weight 196 lb 6.91 oz Patient Weight 09/09/17 06:59 Weight 196 lb 6.91 oz Discharge Plan - Med Rec/Dispo Referrals/Follow Up: Woody Jones MD [Physician] - 09/22/17 8:40 am Kylee Instructions: [facility] [place] Heart Cath Trans Rad Prescriptions: Continue Mometasone/Formoterol [Dulera 100 Mcg/5 Mcg Inhaler] 1 puff INH BID PRN #0 PRN Reason: PRN ORDERS Atorvastatin [Lipitor] 1 tab PO HS Aspirin [Adult Low Dose Aspirin EC] 81 mg PO DAILY Carvedilol [Coreg] 1 tab PO BIDWM Albuterol HFA Inhaler [Ventolin Hfa 90 mcg/actuation] 1 puff PO Q2-4HR PRN PRN Reason: Shortness Of Air - Disposition 01 Discharged Home, Self-Care - Dismissal Complete Discharge Instructions are:: Complete <Woody Jones - Last Filed: 09/11/17 10:49> Discharge Information Date of admission: 09/07/17 15:39 Attending Physician: Woody Jones MD Primary care physician: Martinez Thompson DO - Laboratory Labs: 09/08/17 04:30 09/08/17 04:30 Hospital Course This is a general summary of the patient's hospital course. For more details refer to the complete medical record. Exam Vital signs: Temperature 98 F 09/08/17 07:24 Pulse Rate 56 L 09/08/17 07:48 Respiratory Rate 16 09/08/17 07:24 Blood Pressure 160/90 H 09/08/17 07:24 Pulse Oximetry 96 09/08/17 07:24 Results 09/08/17 04:30 09/08/17 04:30 Attestation Narriative - Attestation Attestation Narrative: 09/11/17 10:49 Recommendation After examining the patient I agree with the above assessment. I am involved in the formulation of the patient's plan of care.
--- NOTE | 2017-09-08 19:24 | Cardiac Catheterization Report ---
DATE OF PROCEDURE September 07, 2017 The patient is a pleasant 57-year-old gentleman with history of coronary artery disease who was admitted with chest pain and elevation in troponin suggestive of non-ST elevation myocardial infarction. He was referred for further evaluation by cardiac catheterization and possible intervention. Informed consent was obtained after explaining the procedure and the potential risks to the patient who agreed to proceed with the procedure. PROCEDURE 1. Left heart catheterization. 2. Coronary angiography. 3. Left ventriculography. TECHNIQUE He was prepped and draped in the usual sterile techniques. Conscious sedation was performed using Versed and fentanyl. 1% lidocaine was used for local anesthesia. Using modified Seldinger technique, arterial access was obtained into the right radial artery with placement of a 6-Macedonian arterial sheath. 3000 units of heparin, 300 mcg of nitroglycerin, and 2.5 mg of verapamil were given through the arterial sheath. LEFT VENTRICULOGRAPHY Left ventriculography in single-plane HIRSCH shallow projection showed normal LV systolic function with ejection fraction of about 65% with no mitral regurgitation or gradient across the aortic valve. LVEDP was about 16. CORONARY ANGIOGRAPHY Left main was free of significant lesions. Left anterior descending artery had minor irregularities. An endovascular stent was present in the mid LAD which was patent. A very small septal branch appeared to be occluded with late flow into the septal branch with 99% ostial stenosis. Left circumflex artery had minor irregularities with no significant lesions. The right coronary artery was dominant and large with no significant lesions. The patient appeared to have some collaterals going from right coronary artery to central territory. The patient tolerated the procedure well with no complications. IMPRESSION 1. Normal LV systolic function with ejection fraction of about 65%. 2. Coronary artery disease as described above. PLAN Given the small nature of the septal branch with multiple collaterals, we decided to continue medical management with no intervention. Will continue risk modification in future. DOMID
== END 2017-09-08 12:21 | disposition home or self-care (01) | DRG 282 ==
LOC: SUR 19:59 → SRG 20:06
PROVIDERS: ADMIT Internal Medicine Cardiovascular Disease; ATTEND Internal Medicine Cardiovascular Disease